=== PATIENT | male | born 1970 | race Caucasian/White ===

== ENCOUNTER 2019-11-10 | Emergency (ER) | payer MEDICARE, MEDICAID ==
[2019-11-10] MEDS ORDERED: AMOXICILLIN500 M2 PO (21:14)
[2019-11-10] MEDS ORDERED: ULTRAM50 M1 PO (21:14)
== END 2019-11-10 21:30 | disposition home or self-care (01) ==
DX: K02.9 Dental caries, unspecified (principal)